=== PATIENT | female | born 1995 | race Caucasian/White ===

== ENCOUNTER 2016-07-07 13:52 | Outpatient (CLI) | payer OTHER ==
--- NOTE | 2016-07-07 15:59 | DIAGNOSTIC IMAGING REPORT ---
PROCEDURE: US OB DETAILED ANATOMIC INDICATION: OB DETAILED TECHNIQUE: Bronson scale, color, and spectral Doppler images of the second trimester gravid uterus were obtained. COMPARISON: OB ultrasound dated 04/08/2016 FINDINGS: A single living intrauterine is in vertex presentation. There is regular cardiac activity at a rate of 149 beats per minute. The placenta is anterior and away from the internal cervical os. The cervix is closed measuring approximately 3.2 cm in length. The amniotic fluid volume is subjectively normal. Biparietal diameter 5.3 cm at 22 weeks and 1 day Head circumference 19.5 cm at 21 weeks and 5-day Abdominal circumference 15.7 cm at 20 weeks and 6-day Femur length 3.5 cm at 20 weeks and 6 days Head to abdominal circumference ratio and femur length to abdominal circumference ratios are normal. Estimated weight 393 g Composite gestational age 21 weeks and 3 days, SONA 11/14/2016 There was visualization of a number of normal structures including the intracranial contents, facial features, nuchal region, spine, four-chamber heart and outflow tracts to the extent that could be visualized, diaphragm, fluid-filled stomach, kidneys, abdomen, urinary bladder, upper and lower extremities, and genitals. A three-vessel umbilical cord, normal and placental cord insertion sites were seen. IMPRESSION: 1. Single living intrauterine with a composite gestational age of 21 weeks and 3 days, SONA 11/14/1970 2. Symmetric and normal anatomy.
== END 2016-07-07 23:00 ==
LOC: US SRH 13:52
DX: Z34.02 Encounter for supervision of normal first pregnancy, second trimester (principal); Z3A.21 21 weeks gestation of pregnancy

== ENCOUNTER 2016-09-10 09:47 | Outpatient (CLI) | payer OTHER | END 2016-09-10 23:00 | LOC: LAB SRH 09:47 | DX: Z34.02 Encounter for supervision of normal first pregnancy, second trimester (principal) | CPT/HCPCS: 90039; 90074; 90100; 91162; 91163; 91306; 91307; 92180; 94001; 94060 ==

== ENCOUNTER 2016-10-11 06:36 | Outpatient (CLI) | payer OTHER | END 2016-10-11 07:45 | disposition home or self-care (01) | LOC: OBC SRH 06:36 → OB SRH 06:38 → OBC SRH 07:45 | PROC: 4A0HXCZ Measurement of Products of Conception, Cardiac Rate, External Approach (ICD-10-PCS; principal; 2016-10-11) | DX: O47.03 False labor before 37 completed weeks of gestation, third trimester (principal); Z3A.34 34 weeks gestation of pregnancy ==

== ENCOUNTER 2016-11-18 03:10 | Inpatient (IN) | payer OTHER ==
[2016-11-18] VITALS (10 sets, daily range): BP systolic 114–149; BP diastolic 56–68
[~2016-11-18] VITALS: Ht 167.6 cm; Wt 76.2 kg
--- NOTE | 2016-11-18 08:31 | History & Physical Report ---
Admission Admit Date 11/18/16 History Chief Complaint contractions History of Present Illness 21 yo G1 at 39+5 presents with regular uterine contractions every 3-4 min. She was checked in the office yesterday and found to be 4 cm dilated. She denies any loss of fluid. Patient History 1. Labor without complication Social History No tobacco/alcohol/drugs Medications and Allergies Medications Current Medications Sig/Rylan Start time Last Medication Dose Route Stop Time Status Admin Calcium Carbonate 500 MG Q4H PRN 11/18 729 AC PO Lactated Ringer's 1,000 ML ASDIRECTED 11/18 729 AC IV Lidocaine HCl 5 ML PRN PRN 11/18 729 AC TOP Morphine Sulfate 4 MG Q4H PRN 11/18 729 AC IV Oxytocin/Lactated 500 ML ASDIRECTED 11/18 729 AC Ringer's IV Allergies Coded Allergies: NKA (11/18/16) Review of Systems Constitutional Denies: Fever, Chills, Sweats. Respiratory Denies: Cough. Cardiovascular Denies: Chest Pain. Gastrointestinal Abdominal Pain. Genitourinary Denies: Dysuria. Physical Exam Vital Signs / I&Os Vital Signs Date Time Temp Pulse Resp B/P Pulse O2 O2 Flow FiO2 Ox Delivery Rate 11/18 0610 97.9 72 18 114/62 General Appearance Alert, Oriented X3, Cooperative, No acute distress HEENT Normal exam Lungs Normal exam Cardiovascular Normal exam Abdomen gravid, palpable contractions Pelvic 5 cm, 70% effaced LAB Results Laboratory Tests 11/18 0600 Hematology WBC (4.5 - 11.5 K/uL) 12.5 RBC (4.00 - 5.20 M/uL) 4.30 Hgb (12.0 - 16.0 gm/dL) 11.6 Hct (36.0 - 46.0 %) 34.9 MCV (80 - 100 fL) 81 MCH (26 - 34 pg) 27 RDW (11.6 - 14.8 %) 13.1 Neut % (Auto) (50 - 75 %) 76.3 Lymph % (Auto) (25 - 40 %) 15.5 Nuckolls % (Auto) (3 - 14 %) 6.7 Eos % (Auto) (0 - 4 %) 1.2 Baso % (Auto) (0 - 2 %) 0.3 Plt Count, EDTA (150 - 400 K/uL) 150 PUBS MCHC (31 - 37 g/dL) 33 Assessment and Plan Problem List 1. Labor without complication Plan Routine labor orders Morphine 4mg IV q4 hours PRN pain Epidural ok if desires Augmentation prn
[2016-11-19] VITALS: BP 115/59
[2016-11-19 03:45] VITALS: BP 125/57
[2016-11-19 08:38] VITALS: BP 128/62
--- NOTE | 2016-11-19 11:56 | Progress Note ---
Subjective General Feeling well. Pain controlled with PO pain medication. Breast feeding. Ambulating. Voiding without difficulty. Moderate lochia. Constitutional Denies: Fever, Chills, Sweats. Respiratory Denies: Cough. Cardiovascular Denies: Chest Pain. Gastrointestinal Denies: Nausea, Vomiting. Genitourinary Denies: Dysuria. Physical Exam Vital Signs / I&Os Vital Signs Date Time Temp Pulse Resp B/P Pulse O2 O2 Flow FiO2 Ox Delivery Rate 11/19 0838 98.1 78 14 128/62 11/19 0345 98.1 74 16 125/57 11/19 0000 97.9 75 16 115/59 11/18 1900 98.4 80 18 115/68 11/18 1706 98.8 97 18 118/56 11/18 1500 91 16 119/62 11/18 1444 79 16 115/56 11/18 1429 91 16 119/62 11/18 1415 86 16 129/61 11/18 1359 94 16 129/63 11/18 1344 94 16 140/61 11/18 1341 98.1 94 16 149/67 I&O 11/19 0000 11/18 1600 11/18 0800 Intake Total 390 2100 Output Total 650 600 Balance -260 1500 General Appearance Alert, Oriented X3, Cooperative, No acute distress HEENT Normal exam Lungs Normal exam Cardiovascular Normal exam Abdomen Soft, uterus firm at umbilicus Extremities Normal exam LAB Results Laboratory Tests 11/19 0505 Hematology Hgb (12.0 - 16.0 gm/dL) 10.3 Hct (36.0 - 46.0 %) 31.8 Assessment and Plan Problem List 1. (normal spontaneous vaginal delivery) Plan Routine pp care [facility] as needed support as needed Desires d/c home today
[2016-11-19] MEDS ORDERED: NORCO1 TA1 PO (11:59)
--- NOTE | 2016-11-19 11:59 | Provider's Discharge Care Plan ---
Problem, Goal, Plan Problem List 1. (normal spontaneous vaginal delivery) Goals: Improve function, Increase independence, No readmissions Instructions: Follow up as directed, Increase activity level, Take meds as directed
== END 2016-11-19 14:15 | disposition home or self-care (01) | DRG 775 ==
LOC: OBC SRH 03:10 → OB SRH 03:13 → OBC SRH 05:15 → OB SRH 05:15
PROVIDERS: ADMIT Obstetrics & Gynecology
PROC: 0HQ9XZZ Repair Perineum Skin, External Approach (ICD-10-PCS; principal; 2016-11-18)
PROC: 0UQMXZZ Repair Vulva, External Approach (ICD-10-PCS; principal; 2016-11-18)
PROC: 10E0XZZ Delivery of Products of Conception, External Approach (ICD-10-PCS; principal; 2016-11-18)
DX: O70.0 First degree perineal laceration during delivery (principal); Z37.0 Single live birth; O69.81X0 Labor and delivery complicated by cord around neck, without compression, not applicable or unspecified; Z3A.39 39 weeks gestation of pregnancy
CPT/HCPCS: 40011; 84043; 90001; 90074; 90155; 91004; 91162; 91163; 95059

== ENCOUNTER 2016-11-25 04:12 | Emergency (ER) | payer OTHER ==
[~2016-11-25 04:12] MED LIST: NORCO1 TA1 PO
--- NOTE | 2016-11-25 05:22 | ED NURSING NOTES ---
Clinical Report - Nurses [facility] [address] [place] [address] 11/25/2016 4:12 [id number] TRIAGE Triage time 04:14. Acuity: LEVEL 3. Chief Complaint: (R sided flank pain). 04:24 11/25/16. Alert. No acute distress. SEPSIS SCREEN: Sepsis Screen. Negative (no infection suspected/documented). ANN COMA SCORE: [place] Coma Scale: 15- eyes open spontaneously (4); best verbal response- oriented x 4 (5); best motor response- obeys commands (6). --04:24 Cristal Edwards R.N. 04:16 11/25/16. BP: 118/68. HR: 86. RR: 16. O2 saturation: 100%. Temp: 98.7 F. Pain level now: 03/13. --04:24 Cristal Edwards R.N. Weight: 68 kg stated. Height/Length: 65 inches Per Patient. BMI: 25. --04:23 Cristal Edwards R.N. Medications Tylenol Oral. --05:43 Cristal Edwards R.N. Ibuprofen Oral. --05:43 Cristal Edwards R.N. Allergies None. --05:43 Cristal Edwards R.N. History Arrived by private vehicle. Historian: family (). Accompanied by family and spouse. This started yesterday. ( Patient's reports she began feeling severe flank pain last night. The pain kept her from sleeping. Patient gave a week ago.). 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 PAST MEDICAL HX: Tetanus status: up-to-date. Immunizations: up-to-date. Denies current . SOCIAL HX: Never smoker. No alcohol use or drug use. FALL RISK ASSESSMENT: Fall risk assessment completed. No fall risk identified. NUTRITIONAL RISK ASSESSMENT: The nutritional risk assessment revealed no deficiencies. FUNCTIONAL ASSESSMENT: Functional assessment: no impairments noted. LEARNING NEEDS ASSESSMENT: The learning needs assessment revealed no barriers. SKIN INTEGRITY ASSESSMENT: Skin integrity risk assessment completed. No skin integrity risk identified. --04:24 Cristal Edwards R.N. PROBLEMS: Dysmenorrhea. --05:43 Cristal Edwards R.N. ADDITIONAL SURGERIES: no known surgeries. Interventions ID band on patient. To treatment room. --04:24 Cristal Edwards R.N. PHYSICAL ASSESSMENT 04:25 11/25/16. Ambulatory to room. GENERAL / NEURO / PSYCH: Alert. Oriented X 4. Appears in no acute distress. RESPIRATORY: Respirations not labored. CVS: Capillary refill less than 2 seconds. EXTREMITIES: ROM of extremities within normal limits. BACK: ROM of neck and back within normal limits. --04:25 Cristal Edwards R.N. NURSING PROGRESS NOTES 04:25 11/25/16. Patient gowned. Head of bed elevated. Two patient identifiers checked. Call light placed in reach. Side rails up x 1. Bed placed in lowest position. Brakes of bed on. Patient ready for evaluation- chart flagged and notification provided. --04:25 Cristal Edwards R.N. Patient ID band checked for patient name and birthdate: family confirmed. Blood samples drawn from the left antecubital space with needle by nurse per protocol ; labeled in presence of the patient and sent to lab: rainbow set. Line flushed with 10 mL normal saline post blood draw. Patient ID band checked for patient name and birthdate: patient confirmed. Instructions provided to collect clean catch urine and patient verbalized understanding. Clean catch urine collected with return of yellow-colored cloudy urine; sample sent to lab for urinalysis. Specimen labeled in the presence of the patient. --04:51 Cristal Edwards R.N. 05:01 11/25/2016 Hydrocodone-APAP (Hydrocodone-Acetaminophen) PO 5/325 mg Tablets 1 tab given. Allergies verified, confirmed 5 rights and sedative warning given to the patient. --05:02 Cristal Edwards R.N. 05:32 11/25/2016 Levaquin (Levofloxacin) PO Tablets 500 mg given. Allergies verified and confirmed 5 rights. --05:42 Cristal Edwards R.N. DISPOSITION / DISCHARGE 05:41 05/25/17. Departure time: 05:41. No learning barriers present. Discharge instructions provided and reviewed with the patient and spouse. Reviewed warnings. Reviewed medication(s). Treatments reviewed. Patient and spouse verbalized understanding. Written instructions provided in Malagasy. The patient was discharged home and accompanied by spouse. She left the Emergency Department ambulatory and via private vehicle. Spouse driving. --05:42 Cristal Edwards R.N. 05:40 11/25/16. BP: 112/64. HR: 74. RR: 14. O2 saturation: 98%. Temp: deferred. Pain level now: 12/11. --05:42 Cristal Edwards R.N. Locked/Released at 11/25/2016 5:44 by Cristal Edwards R.N.
--- NOTE | 2016-11-25 05:22 | ED ORDER SUMMARY ---
..... Patient: SKYLER AVILEZ OrderSheet [facility] VisitID: [id number] [place] [address] 21y, F Registration Date/Time: 11/25/2016 ORDER SHEET Weight: 68.0 kg (stated) Allergies: None GENERAL ORDERS: UA-Culture if indicated Urgent (04:52 11/25/2016 Steve MICHEL) (Ack 5:09 Emmanuel) (5:09 RMarsden R.N.) MEDICATION ORDERS: Hydrocodone-APAP PO 5/325 mg (NOW, HIGH ALERT MEDICATION) (04:57 11/25/2016 Steve MICHEL) (Ack 4:57 RMarsden R.N.) (5:01 RMarsden R.N.) Levaquin PO 500 mg (NOW) (05:20 11/25/2016 Steve MICHEL) (Ack 5:21 RMarsden R.N.) (5:42 RMarsden R.N.) IV FLUIDS: ORDER SHEET NOTES: [Electronically signed by Cristal Edwards R.N. (05:44 11/25/2016)] [Electronically signed by Sheri Zhang MD (17:16 12/07/2016)] [Electronically locked/signed by Cristal Edwards R.N. (05:44 11/25/2016)]
--- NOTE | 2016-11-25 05:22 | ED ORDER SUMMARY ---
..... Patient: SKYLER AVILEZ OrderSheet [facility] VisitID: [id number] [place] [address] 21y, F Registration Date/Time: 11/25/2016 ORDER SHEET Weight: 68.0 kg (stated) Allergies: None GENERAL ORDERS: UA-Culture if indicated Urgent (04:52 11/25/2016 Steve MICHEL) (Ack 5:09 Emmanuel) (5:09 RMarsden R.N.) MEDICATION ORDERS: Hydrocodone-APAP PO 5/325 mg (NOW, HIGH ALERT MEDICATION) (04:57 11/25/2016 Steve MICHEL) (Ack 4:57 RMarsden R.N.) (5:01 RMarsden R.N.) Levaquin PO 500 mg (NOW) (05:20 11/25/2016 Steve MICHEL) (Ack 5:21 RMarsden R.N.) (5:42 RMarsden R.N.) IV FLUIDS: ORDER SHEET NOTES: [Electronically signed by Cristal Edwards R.N. (05:44 11/25/2016)] [Electronically signed by Sheri Zhang MD (17:16 12/07/2016)] [Electronically locked/signed by Cristal Edwards R.N. (05:44 11/25/2016)]
--- NOTE | 2016-11-25 05:22 | ED CLINICAL REPORT ---
Clinical Report - Physicians/Mid Levels [facility] [address] [place] [address] 11/25/2016 4:12 [id number] Time Seen: 04:33. Arrived- By private vehicle. Historian- patient. HISTORY OF PRESENT ILLNESS Chief Complaint: BACK PAIN. It is described as being moderate in degree and in the area of the right flank and right side of the upper lumbar spine. The quality is noted to be "pain". Onset was yesterday gave vaginally 1 week ago and it is still present. Modifying factors. Not worsened by anything. Not relieved by anything. No bladder dysfunction, bowel dysfunction, sensory loss or motor loss. Patient denies an injury. No other injury. Similar symptoms previously: None. Recent medical care: The patient was seen recently at another facility and hospitalized. ( Had an uncomplicated delivery about 1 week ago.). REVIEW OF SYSTEMS No fever, chills, eye discomfort, headache or sore throat. No cough, difficulty breathing, chest pain, skin rash or abdominal pain. No nausea, vomiting, diarrhea, black stools or difficulty with urination. No urinary frequency, hematuria, vaginal discharge or bloody stools. All systems otherwise negative, except as recorded above. PAST HISTORY Problems: Dysmenorrhea. Additional Surgeries: no known surgeries. Medications: Ibuprofen Oral. Tylenol Oral. Allergies: None. SOCIAL HISTORY Never smoker. No alcohol use or drug use. ADDITIONAL NOTES The nursing notes have been reviewed. PHYSICAL EXAM Vital Signs: 11/25/2016 04:16 BP: 118/68. HR: 86. RR: 16. O2 saturation: 100%. Temp: 98.7 F. Pain level now: 9/10. Have been reviewed. Appearance: Alert. No acute distress. (PT appears mildly uncomfortable.). HEENT: Normal external inspection. Eyes: Pupils equal, round and reactive to light. Neck: Normal inspection. Neck nontender. Painless ROM. CVS: Normal heart rate and rhythm. Heart sounds normal. Pulses normal. Respiratory: No respiratory distress. Breath sounds normal. Abdomen: Normal inspection. Soft and nontender. Back: Mild CVA tenderness on the right. Mild soft tissue tenderness in the right upper lumbar area. No vertebral point tenderness. Skin: Skin warm and dry. Normal skin color. No rash. Normal skin turgor. Extremities: Extremities exhibit normal ROM. Extremities nontender. Neuro: Mood/affect normal. No motor deficit. No sensory deficit. (Grossly oriented.). LABS, X-RAYS, AND EKG Laboratory Tests: UA-Culture if indicated: (MARISELA: 11/25/2016 04:45) ( MsgRcvd 11/25/2016 05:12) Final results Test Result Flag Units (Reference) URINE COLOR YELLOW URINE APPEARANCE CLOUDY URINE GLUCOSE NEGATIVE (NEGATIVE) URINE BILIRUBIN NEGATIVE (NEGATIVE) URINE KETONE NEGATIVE (NEGATIVE) URINE SPECIFIC GRAVITY <= 1.005 L (1.010-1.030) URINE PH 6.0 (5.0-8.0) URINE PROTEIN 1+ (NEGATIVE) URINE UROBILINOGEN 0.2 EU/dL (0.2-1.0) URINE NITRITE POSITIVE (NEGATIVE) URINE BLOOD 3+ (NEGATIVE) URINE LEUK ESTERASE POSITIVE (NEGATIVE) URINE RBC 50-75 rbc/hpf (0-1) URINE WBC >100 wbc/hpf (0-1) URINE EPITHELIAL CELLS 0-1 EPI/hpf (0-5) URINE BACTERIA MODERATE (2+ TO 3+) (NONE SEEN) URINE COMMENT CULTURE INDICATED 0-1 TRANSITIONAL EPITHELIAL CELLS.URINE CULTURES ARE SET-UP BASED ON THE FOLLOWING CRITERIA:POSITIVE NITRITEPOSITIVE LEUKOCYTE ESTERASEGREATER THAN 10 WHITE BLOOD CELLSMODERATE (2+) OR GREATER BACTERIA . Pulse Oximetry: 11/25/2016 04:16 O2 saturation: 100%. (FIO2 - room air). Interpretation: normal. PROGRESS AND PROCEDURES Course of Care: I suspected a UTI, given that this pt had recently given , but sx started several days later. UA was done, and found to be positive. Pt was treated with Levaquin, as well as hydrocodone for her discomfort. Patient and spouse counseled in person regarding the patient's stable condition, test results, diagnosis and need for follow-up. Concerns were addressed. Old medical records reviewed. Disposition: Discharged. Condition: stable. CLINICAL IMPRESSION Acute right sided sciatica with low back pain. No sensory loss or motor deficit. Acute urinary tract infection with cystitis. INSTRUCTIONS Warnings: SEDATIVE MEDICATION: You were given sedative medication during your visit. Do not drive or operate dangerous machinery for 6 hours. GENERAL WARNINGS: Return or contact your physician immediately if your condition worsens or changes unexpectedly, if not improving as expected, or if other problems arise. Prescription Medications: Cipro 500 mg: take 1 tab orally every 12 hours for 10 days. No refills. Substitution is permissible. Follow-up: Follow up with your doctor in seven days if not better. Understanding of the discharge instructions verbalized by patient and family. (Electronically signed by Sheri Zhang MD 12/07/2016 17:16)
--- NOTE | 2016-11-25 05:22 | ED NURSING NOTES ---
Clinical Report - Nurses [facility] [address] [place] [place] [address] 11/25/2016 4:12 [id number] TRI[facility] Triage time 04:14. Acuity: LEVEL 3. Chief Complaint: (R sided flank pain). 04:24 11/25/16. Alert. No acute distress. SEPSIS SCREEN: Sepsis Screen. Negative (no infection suspected/documented). ANN COMA SCORE: [place] Coma Scale: 15- eyes open spontaneously (4); best verbal response- oriented x 4 (5); best motor response- obeys commands (6). --04:24 Cristal Edwards R.N. 04:16 11/25/16. BP: 118/68. HR: 86. RR: 16. O2 saturation: 100%. Temp: 98.7 F. Pain level now: 03/13. --04:24 Cristal Edwards R.N. Weight: 68 kg stated. Height/Length: 65 inches Per Patient. BMI: 25. --04:23 Cristal Edwards R.N. Medications Tylenol Oral. --05:43 Cristal Edwards R.N. Ibuprofen Oral. --05:43 Cristal Edwards R.N. Allergies None. --05:43 Cristal Edwards R.N. History Arrived by private vehicle. Historian: family (). Accompanied by family and spouse. This started yesterday. ( Patient's reports she began feeling severe flank pain last night. The pain kept her from sleeping. Patient gave a week ago.). 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 PAST MEDICAL HX: Tetanus status: up-to-date. Immunizations: up-to-date. Denies current . SOCIAL HX: Never smoker. No alcohol use or drug use. FALL RISK ASSESSMENT: Fall risk assessment completed. No fall risk identified. NUTRITIONAL RISK ASSESSMENT: The nutritional risk assessment revealed no deficiencies. FUNCTIONAL ASSESSMENT: Functional assessment: no impairments noted. LEARNING NEEDS ASSESSMENT: The learning needs assessment revealed no barriers. SKIN INTEGRITY ASSESSMENT: Skin integrity risk assessment completed. No skin integrity risk identified. --04:24 Cristal Edwards R.N. PROBLEMS: Dysmenorrhea. --05:43 Cristal Edwards R.N. ADDITIONAL SURGERIES: no known surgeries. Interventions ID band on patient. To treatment room. --04:24 Cristal Edwards R.N. PHYSICAL ASSESSMENT 04:25 11/25/16. Ambulatory to room. GENERAL / NEURO / PSYCH: Alert. Oriented X 4. Appears in no acute distress. RESPIRATORY: Respirations not labored. CVS: Capillary refill less than 2 seconds. EXTREMITIES: ROM of extremities within normal limits. BACK: ROM of neck and back within normal limits. --04:25 Cristal Edwards R.N. NURSING PROGRESS NOTES 04:25 11/25/16. Patient gowned. Head of bed elevated. Two patient identifiers checked. Call light placed in reach. Side rails up x 1. Bed placed in lowest position. Brakes of bed on. Patient ready for evaluation- chart flagged and notification provided. --04:25 Cristal Edwards R.N. Patient ID band checked for patient name and birthdate: family confirmed. Blood samples drawn from the left antecubital space with needle by nurse per protocol ; labeled in presence of the patient and sent to lab: rainbow set. Line flushed with 10 mL normal saline post blood draw. Patient ID band checked for patient name and birthdate: patient confirmed. Instructions provided to collect clean catch urine and patient verbalized understanding. Clean catch urine collected with return of yellow-colored cloudy urine; sample sent to lab for urinalysis. Specimen labeled in the presence of the patient. --04:51 Cristal Edwards R.N. 05:01 11/25/2016 Hydrocodone-APAP (Hydrocodone-Acetaminophen) PO 5/325 mg Tablets 1 tab given. Allergies verified, confirmed 5 rights and sedative warning given to the patient. --05:02 Cristal Edwards R.N. 05:32 11/25/2016 Levaquin (Levofloxacin) PO Tablets 500 mg given. Allergies verified and confirmed 5 rights. --05:42 Cristal Edwards R.N. DISPOSITION / DISCHARGE 05:41 05/25/17. Departure time: 05:41. No learning barriers present. Discharge instructions provided and reviewed with the patient and spouse. Reviewed warnings. Reviewed medication(s). Treatments reviewed. Patient and spouse verbalized understanding. Written instructions provided in Burmese. The patient was discharged home and accompanied by spouse. She left the Emergency Department ambulatory and via private vehicle. Spouse driving. --05:42 Cristal Edwards R.N. 05:40 11/25/16. BP: 112/64. HR: 74. RR: 14. O2 saturation: 98%. Temp: deferred. Pain level now: 12/11. --05:42 Cristal Edwards R.N. Locked/Released at 11/25/2016 5:44 by Cristal Edwards R.N.
--- NOTE | 2016-12-07 17:16 | ED DISCHARGE INSTRUCTIONS ---
Patient: SKYLER AVILEZ General Instructions [facility] VisitID: [id number] [place] [address] 21y, F Registration Date/Time: 11/25/2016 Acute right sided sciatica with low back pain. No sensory loss or motor deficit. Acute urinary tract infection with cystitis. INSTRUCTIONS Warnings: SEDATIVE MEDICATION: You were given sedative medication during your visit. Do not drive or operate dangerous machinery for 6 hours. GENERAL WARNINGS: Return or contact your physician immediately if your condition worsens or changes unexpectedly, if not improving as expected, or if other problems arise. Prescription Medications: Cipro 500 mg: take 1 tab orally every 12 hours for 10 days. No refills. Substitution is permissible. Follow-up: Follow up with your doctor in seven days if not better. Understanding of the discharge instructions verbalized by patient and family. ADDITIONAL INFORMATION Sciatica Sciatica ("Lumbar Radiculopathy") causes a pain that spreads from the lower back down into the buttock, hip and leg. Sometimes leg pain can occur without any back pain. Sciatica is due to irritation or pressure on a spinal nerve as it comes out of the spinal canal. This is most often due to a bulge or rupture of a nearby spinal disk (the cartilage cushion between each spinal bone), which presses on a nearby nerve. Other causes include spinal stenosis (narrowing of the spinal canal) and spasm of the pyriform muscle (a muscle in the buttocks that the sciatic nerve passes through). Sciatica may begin after a sudden twisting/bending force (such as in a car accident), or sometimes after a simple awkward movement. In either case, muscle spasm is commonly present and contributes to the pain. The diagnosis of sciatica is made from the symptoms and physical exam. Unless you had a physical injury (such as a car accident or fall), X-rays are usually not ordered for the initial evaluation of sciatica because the nerves and disks cannot be seen on an x-ray. If signs of a compressed nerve are present (for example, loss of tendon reflex or strength in the leg), an MRI (magnetic resonance imaging) scan will need to be scheduled as an outpatient. Most sciatica (80-90%) gets better with medicine, exercise, physical therapy. If symptoms continue after at least three months of medical treatment, surgery may be considered. Home Care: You may need to stay in bed the first few days. But, as soon as possible, begin sitting or walking to avoid problems with prolonged bed rest. When in bed, try to find a position of comfort. A firm mattress is best. Try lying flat on your back with pillows under your knees. You can also try lying on your side with your knees bent up towards your chest and a pillow between your knees. Avoid prolonged sitting. This puts more stress on the lower back than standing or walking. Some persons find relief with heat (hot shower, hot bath or heating pad) and massage, while others prefer cold packs (crushed or cubed ice in a plastic bag, wrapped in a towel). Try both and use the method that feels best for 20 minutes several times a day. You may use acetaminophen (Tylenol) or ibuprofen (Motrin, Advil) to control pain, unless another pain medicine was prescribed. [ NOTE: If you have chronic liver or kidney disease or ever had a stomach ulcer or GI bleeding, talk with your doctor before using these medicines.] Be aware of safe lifting methods and do not lift anything over 15 pounds until all the pain is gone. Follow Up with your doctor or this facility if your symptoms do not start to improve after one week. Physical therapy or further testing may be needed. [NOTE: If X-rays were taken, they will be reviewed by a radiologist. You will be notified of any new findings that may affect your care.] Get Prompt Medical Attention if any of the following occur: Pain becomes worse, not controlled by the prescribed medicine Weakness or numbness in one or both legs Numbness in the groin, genital area Loss of bowel or bladder control Bladder Infection,Female (Adult) A bladder infection ("cystitis" or "UTI") usually causes a constant urge to urinate and a burning when passing urine. Urine may be cloudy, smelly or dark. There may be pain in the lower abdomen. A bladder infection occurs when bacteria from the vaginal area enter the bladder opening (urethra). This can occur from sexual intercourse, wearing tight clothing, dehydration and other factors. Home Care: Drink lots of fluids (at least 6-8 glasses a day, unless you must restrict fluids for other medical reasons). This will force the medicine into your urinary system and flush the bacteria out of your body. Avoid sexual intercourse until your symptoms are gone. Avoid caffeine, alcohol and spicy foods. These can irritate the bladder. A bladder infection is treated with antibiotics. You may also be given Pyridium (generic = phenazopyridine) to reduce the burning sensation. This medicine will cause your urine to become a bright orange color. The orange urine may stain clothing. You may wear a pad or panty-liner to protect clothing. Preventing Future Infections: Always wipe from front to back after a bowel movement. Keep the genital area clean and dry. Drink plenty of fluids each day to avoid dehydration. Both sexual partners should wash before intercourse. Urinate right after intercourse to flush out the bladder. Wear cotton underwear and cotton-lined panty hose; avoid tight-fitting pants. If you are on control pills and are having frequent bladder infections, discuss with your doctor. Follow Up: Return to this facility or see your doctor if ALL symptoms are not gone after three days of treatment. Get Prompt Medical Attention if any of the following occur: Fever of 100.4F (38C) or higher, or as directed by your healthcare provider No improvement by the third day of treatment Increasing back or abdominal pain Repeated vomiting; unable to keep medicine down Weakness, dizziness or fainting Vaginal discharge Pain, redness or swelling in the labia (outer vaginal area) You have been given the following additional information: Back Pain W/ Sciatica Bladder Infection, Female (Adult) (Electronically signed by Sheri Zhang MD 12/07/2016 17:16)
--- NOTE | 2016-12-07 17:16 | ED MAR SUMMARY ---
..... Medication Administration Record [facility] [address] [place] [address] Patient: SKYLER AVILEZ Visit ID: [id number] 21y, F Weight: 68.0 kg Height/Length: 65 in BMI: 25 ALLERGIES: None Given 05:01 11/25/2016 Cristal Edwards, RLatoyaN. Medication Administered: HYDROCODONE-APAP [PO] (HYDROCODONE-ACETAMINOPHEN), Dose: 1 tab 5/325 mg Tablets PO. Medication Ordered: Hydrocodone-APAP PO 5/325 mg (NOW, HIGH ALERT MEDICATION). Given 05:32 11/25/2016 Cristal Edwards, R.N. Medication Administered: LEVAQUIN [PO] (LEVOFLOXACIN), Dose: 500 mg Tablets PO. Medication Ordered: Levaquin PO 500 mg (NOW).
--- NOTE | 2016-12-07 17:16 | ED MAR SUMMARY ---
..... Medication Administration Record [facility] [address] [place] [address] Patient: SKYLER AVILEZ Visit ID: [id number] 21y, F Weight: 68.0 kg Height/Length: 65 in BMI: 25 ALLERGIES: None Given 05:01 11/25/2016 Cristal Edwards, RLatoyaN. Medication Administered: HYDROCODONE-APAP [PO] (HYDROCODONE-ACETAMINOPHEN), Dose: 1 tab 5/325 mg Tablets PO. Medication Ordered: Hydrocodone-APAP PO 5/325 mg (NOW, HIGH ALERT MEDICATION). Given 05:32 11/25/2016 Cristal Edwards, R.N. Medication Administered: LEVAQUIN [PO] (LEVOFLOXACIN), Dose: 500 mg Tablets PO. Medication Ordered: Levaquin PO 500 mg (NOW).
--- NOTE | 2016-12-07 17:17 | ED MED RECONCILIATION SUMMARY ---
Patient: SKYLER AVILEZ Medication Reconciliation Report [facility] VisitID: [id number] [place] [address] 21y, F Registration Date/Time: 11/25/2016 Weight: 68.0 kg Height/Length: 65 in. BMI: 25.0 ALLERGIES: None The patient's Home Medications are listed below: THE FOLLOWING MEDICATIONS NEED TO BE RECONCILED: Ibuprofen Oral Tylenol Oral The source(s) of the original Home Medication information: Not obtained. The following Medications were given to the patient in the Emergency Department: Hydrocodone-APAP [PO] PO 1 tab, administered: 11/25/2016 5:01:00 AM Levaquin [PO] PO 500 mg, administered: 11/25/2016 5:32:00 AM The following Medications were prescribed to the patient: Cipro 500 mg: take 1 tab orally every 12 hours for 10 days. No refills. Substitution is permissible. -- Sheri Zhang MD
--- NOTE | 2016-12-07 17:17 | ED MED RECONCILIATION SUMMARY ---
Patient: SKYLER AVILEZ Medication Reconciliation Report [facility] VisitID: [id number] [place] [address] 21y, F Registration Date/Time: 11/25/2016 Weight: 68.0 kg Height/Length: 65 in. BMI: 25.0 ALLERGIES: None The patient's Home Medications are listed below: THE FOLLOWING MEDICATIONS NEED TO BE RECONCILED: Ibuprofen Oral Tylenol Oral The source(s) of the original Home Medication information: Not obtained. The following Medications were given to the patient in the Emergency Department: Hydrocodone-APAP [PO] PO 1 tab, administered: 11/25/2016 5:01:00 AM Levaquin [PO] PO 500 mg, administered: 11/25/2016 5:32:00 AM The following Medications were prescribed to the patient: Cipro 500 mg: take 1 tab orally every 12 hours for 10 days. No refills. Substitution is permissible. -- Sheri Zhang MD
== END 2016-11-25 05:41 | disposition home or self-care (01) ==
LOC: ED SRH 04:12
DX: O86.22 Infection of bladder following delivery (principal); M54.41 Lumbago with sciatica, right side
CPT/HCPCS: 90004; 90074; 90148; 90469